=== PATIENT | female | born 1990 | race Caucasian/White ===

== ENCOUNTER 2018-01-01 00:01 | Emergency (ER) | payer BC ==
[~2018-01-01] VITALS: Ht 172.7 cm; Wt 65.8 kg
[~2018-01-01 00:01] MED LIST: IBUPROFEN 800800 M1 PO; PRENATAL GUMMI1 EACH
[2018-01-01 00:51] LABS: URINE BILIRUBIN NEGATIVE (Negative); URINE BLOOD 3+ (Negative); URINE CLARITY CLEAR; URINE COLOR YELLOW; URINE GLUCOSE-RANDOM NEGATIVE (Negative); URINE KETONES NEGATIVE (Negative); URINE LEUKOCYTES-REFLEX NEGATIVE (Negative); URINE NITRITE-REFLEX NEGATIVE (Negative); URINE PROTEIN NEGATIVE (Negative); URINE SPECIFIC GRAVITY 1.015 (1.005-1.030)
[2018-01-01] MEDS ORDERED: IBUPROFEN 800800 MG PO (01:03)
[2018-01-01 01:13] VITALS: BP 99/50
[2018-01-01 01:43] LABS: CASTS None Seen /LPF (None Seen); MUCUS 4-6 Moderate strn/LPF (None Seen); SQUAMOUS 4-10 Moderate /LPF (0-3)
[2018-01-01 01:44] LABS: BACTERIA-REFLEX 1-9 Few /HPF (None Seen); CRYSTALS None Seen /LPF (None Seen); URINE RBC >20 Many /HPF (0-2); URINE WBC-REFLEX None Seen /HPF (0-5)
== END 2018-01-01 01:15 | disposition home or self-care (01) ==
LOC: M.ERS 00:01
PROVIDERS: Emergency Medicine
DX: N94.6 Dysmenorrhea, unspecified (principal); F17.200 Nicotine dependence, unspecified, uncomplicated